=== PATIENT | female | born 1970 | race Caucasian/White ===

== ENCOUNTER 2016-12-29 17:31 | Emergency (ER) | payer MEDICAID ==
[~2016-12-29] VITALS: Ht 170.2 cm; Wt 131.5 kg
[2016-12-29 21:30] VITALS: BP 133/74
== END 2016-12-29 21:30 | disposition home or self-care (01) ==
LOC: ED 17:31
DX: G89.29 Other chronic pain (principal); M54.9 Dorsalgia, unspecified
CPT/HCPCS: J1885

== ENCOUNTER 2017-07-20 22:16 | Emergency (ER) | payer MEDICAID ==
[2017-07-21 02:19] VITALS: BP 104/47
== END 2017-07-21 02:19 | disposition home or self-care (01) ==
LOC: ED 22:16
DX: R50.9 Fever, unspecified (principal); R05 Cough; Z88.8 Allergy status to other drugs, medicaments and biological substances
CPT/HCPCS: Q0092

== ENCOUNTER 2018-06-21 16:38 | Emergency (ER) | payer MEDICAID ==
[~2018-06-21] VITALS: Ht 172.7 cm; Wt 130.2 kg
[2018-06-21 17:08] VITALS: Ht 172.7 cm; Wt 130.2 kg
[2018-06-21 18:59] VITALS: BP 110/58
== END 2018-06-21 18:59 | disposition home or self-care (01) ==
LOC: ED 16:38
DX: R51 Headache (principal); G89.29 Other chronic pain; Z88.8 Allergy status to other drugs, medicaments and biological substances
CPT/HCPCS: 82962; J1200; J1885; J2765

== ENCOUNTER 2018-11-06 21:54 | Emergency (ER) | payer MEDICAID ==
[~2018-11-06] VITALS: Ht 172.7 cm; Wt 132.0 kg
[2018-11-06 22:16] VITALS: Ht 172.7 cm; Wt 132.0 kg
[2018-11-07 01:31] VITALS: BP 136/89
== END 2018-11-07 01:31 | disposition home or self-care (01) ==
LOC: ED 21:54
DX: G89.29 Other chronic pain (principal); M54.5 Low back pain; R20.0 Anesthesia of skin; Z88.8 Allergy status to other drugs, medicaments and biological substances
CPT/HCPCS: J1885; J7512